=== PATIENT | female | born 1985 | race Two or more races ===

== ENCOUNTER 2019-05-18 21:25 | Inpatient (IN) | payer OTHER ==
[~2019-05-18] VITALS: Ht 162.6 cm; Wt 77.1 kg
[2019-05-18 22:00] VITALS: BP 112/73
[2019-05-18] MEDS ORDERED: NALBUPHINE 10 MG/ML AMP IVP PRN (22:20)
[2019-05-18] MEDS ORDERED: LACTATED RINGERS 1,000 ML IV SCH (22:25)
[2019-05-18 22:40] LABS: APPEARANCE,URINE SL CLOUDY (CLEAR); BILIRUBIN,URINE NEGATIVE (NEGATIVE); BLOOD, URINE 2+ (NEGATIVE); COLOR,URINE YELLOW (YELLOW); LEUKOCYTE ESTERASE ,URINE 1+ (NEGATIVE); NITRITE, URINE NEGATIVE (NEGATIVE); PH,URINE 6.5 (5.0-9.0); UGLUCOSE NEGATIVE (NEGATIVE)
[2019-05-18 22:42] LABS: BASOPHILS % (AUTO) 0.3 % (0.0-2.0); EOSINOPHILS # (AUTO) 0.1 K/uL (0-0.4); EOSINOPHILS % (AUTO) 0.8 % (0.0-4.0); HEMATOCRIT 41.1 % (36-48); HEMOGLOBIN 13.6 g/dL (12.0-16.0); LYMPHOCYTES # (AUTO) 1.9 K/uL (2.5-16.5); LYMPHOCYTES % (AUTO) 22.1 % (20.5-51.1); MEAN CORPUSCULAR HEMOGLOBIN 29 pg (27-31); MEAN CORPUSCULAR HGB CONC 33 g/dL (33-37); MEAN CORPUSCULAR VOLUME 87.3 fL (80-94); MONOCYTES # (AUTO) 0.7 K/uL (0.8-1.0); MONOCYTES % (AUTO) 8.4 % (1.7-9.3); NEUTROPHILS % (AUTO) 68.4 % (42.2-75.2); PLATELET COUNT (AUTO) 240 K/uL (140-450); RED BLOOD CELL COUNT(AUTO) 4.71 MIL/uL (4.20-5.40); RED CELL DISTRIBUTION WIDTH 13.6 % (11.6-13.7); WHITE BLOOD COUNT (AUTO) 8.7 K/uL (4.8-10.8)
[2019-05-18 23:14] LABS: RBC,URINE 11-20 (MOD) /HPF (0-5); WBC,URINE 16-25 (MOD) /HPF (0-5); YEAST,URINE Many /HPF (None Seen)
[2019-05-19] MEDS ORDERED: FERR325E14 PO (02:10)
[2019-05-19] MEDS ORDERED: PREN-13 PO (02:10)
[2019-05-19] MEDS ORDERED: OXYTOCIN 20 UNITS in LACTATED RINGERS 1,000 ML IV SCH (02:45)
[2019-05-19] MEDS ORDERED: OXYTOCIN 20 UNITS/LR PREMIX 2,000 ML IV ONE (02:49)
[2019-05-19] MEDS ORDERED: NALBUPHINE 10 MG/ML AMP ONE (07:52)
--- NOTE | 2019-05-19 08:11 | NUR ---
PATIENT HAS BEEN SCREENED AND CATEGORIZED LOW NUTRITION RISK. PATIENT WILL BE SEEN WITHIN 7 DAYS OF ADMISSION. 05/25/[address]
[2019-05-19] MEDS ORDERED: LIDOCAINE 1% 500 MG/50 ML VIAL ONE (08:33)
[2019-05-19] MEDS ORDERED: METHYLERGONOVINE 0.2 MG/ML AMP IM PRN (11:40)
[2019-05-19] MEDS ORDERED: BISACODYL 10 MG SUPP RC PRN (11:40)
[2019-05-19] MEDS ORDERED: IBUPROFEN 800 MG TAB PO PRN (11:40)
[2019-05-19] MEDS ORDERED: MEASLES, MUMPS, AND RUBELLA 1 VIAL SQVAC PRN (11:40)
[2019-05-19] MEDS ORDERED: METHYLERGONOVINE 0.2 MG TAB PO PRN (11:40)
[2019-05-19] MEDS ORDERED: OXYTOCIN 10 UNITS/ML VIAL IM PRN (11:40)
[2019-05-19] MEDS ORDERED: BENZOCAINE/MENTHOL 20%-0.5% 60 GM CAN TP PRN (11:40)
[2019-05-19] MEDS ORDERED: LIDOCAINE MPF 1% 10 MG/ML VIAL INJ SCH (11:50)
[2019-05-20 06:44] LABS: HEMATOCRIT 36.6 % (36-48); HEMOGLOBIN 11.7 g/dL (12.0-16.0)
== END 2019-05-21 16:30 | disposition home or self-care (01) | DRG 560 ==
LOC: MLD 21:25 → MFCC 05-19 13:15
PROVIDERS: ADMIT Obstetrics & Gynecology; ATTEND Obstetrics & Gynecology
PROC: 10E0XZZ Delivery of Products of Conception, External Approach (ICD-10-PCS; principal; 2019-05-19)
PROC: 10907ZC Drainage of Amniotic Fluid, Therapeutic from Products of Conception, Via Natural or Artificial Opening (ICD-10-PCS; 2019-05-19)
PROC: 0KQM0ZZ Repair Perineum Muscle, Open Approach (ICD-10-PCS; 2019-05-19)
DX: O70.1 Second degree perineal laceration during delivery (principal); O62.3 Precipitate labor; Z37.0 Single live birth; Z3A.38 38 weeks gestation of pregnancy
CPT/HCPCS: 36415; 59409; 81001; 85018; 85025; 86592; 86886; 86900; 86901; 87086; J2001; J2300; J2590; J7120